=== PATIENT | female | born 1995 | race Hispanic/Latino ===

== ENCOUNTER 2019-02-28 20:21 | Day surgery (SDC) | payer OTHER ==
[2019-02-28 20:58] VITALS: BMI 26.9
[2019-02-28] MEDS ORDERED: hydrALAZINE 20 MG/ML VIAL SLOW IVP PRN (21:03)
[2019-02-28 21:16] LABS: Bacteria/HPF None Seen HPF (None Seen); Bilirubin Negative (Negative); Blood, Urine Negative (Negative); Clarity Clear (Clear); Glucose, Urine (Dipstick) Normal (Negative); Leukocyte Negative Leu/uL (Negative); Nitrite Negative (Negative); Protein, Urine (Dipstick) Negative (Neg-Trace); RBC/HPF 0-3 HPF (0-3); Squamous Epithelial 0-3 HPF (0-3); Urobilinogen Normal mg/dL (Less than 2); WBC/HPF 0-3 HPF (0-3)
[2019-02-28 21:18] LABS: Urine Culture Reflex No No
--- NOTE | 2019-02-28 21:19 | PDOC.FPROB ---
FMR OB H&P: HPI - History of Present Illness Chief Complaint: lower abd pain Indentification: 23 y/o @ 28.6 WGA History of Present Illness: Pt presents for lower abdominal pain. She describes it as a sharp 6/10 pain that comes and goes, worse with movement. Associated urinary urgency and frequency. Denies ctx, vaginal bleeding, LOF. Endorses good movement. Primary Care Physician: Dr. 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 chorio - Surgical History Sx History: section appendectomy L femur sx - Social History Social History: Denies tobacco, EtOH, drug use - Family History Family History: Denies FMR OB H&P: Medications - Current Home Medications: Medication Instructions Recorded Confirmed Type Omeprazole 1 cap PO DAILY 02/28/19 02/28/19 History Ondansetron HCl [Zofran] 4 mg PO Q12HR PRN 02/28/19 02/28/19 History Vitamin 1 tablet PO DAILY 02/28/19 02/28/19 History Allergies/Adverse Reactions: Allergies Allergy/AdvReac Type Severity Reaction Status Date / Time promethazine [From Phenergan] AdvReac Emesis Verified 02/28/19 20:51 FMR OB H&P: ROS - Review of Systems General: denies: fever/chills, weight/appetite/sleep changes Eyes: denies: vision changes, double vision ENT: denies: nasal congestion, sore throat Cardiovascular: denies: chest pain, edema Respiratory: denies: cough, shortness of breath Gastrointestinal: reports: abdominal pain. denies: nausea, diarrhea Genitourinary (Female): reports: vaginal pressure. denies: dysuria, vaginal bleeding Musculoskeletal: denies: pain, swelling Neurologic: denies: numbness, weakness Integumentary: denies: itching, rash Hematologic/Lymphatic: denies: prolonged or excessive bleeding, enlarged lymph nodes FMR OB H&P: Vital Signs - Maternal Vital signs: BP 106/62, HR 88, RR 20, Temp 98.6 - Heart Tones Baseline: 140 Variability: moderate Acceleration: present Deceleration: absent Category: category 1 Mcfall contractions every: None FMR OB H&P: Physical Exam - Physical Exam General: NAD, awake, alert and oriented HEENT: EOMI, MMM, no scleral icterus, grossly normal vision, grossly normal hearing Neck: supple, no LAD Heart: pulses present, no edema General: no respiratory distress Abdomen: soft, gravid, other (mildly tender in lower abdomen) Musculoskeletal: pulses present, FROM in all four extremities Neurological: no focal deficit Skin: good tugor, capillary refill <2 seconds Lymphatic: no unusual bruising or bleeding, no purpura Psychiatric: intact recent and remote memory, good judgement and insight FMR OB H&P: Results - Labs Lab results: Laboratory Results - last 24 hr 02/28/19 21:00 Urine Color Colorless Urine Clarity Clear Urine pH 7.0 Ur Specific Isabella 1.005 Urine Protein Negative Urine Glucose (UA) Normal Urine Ketones Negative Urine Blood Negative Urine Nitrite Negative Urine Bilirubin Negative Urine Urobilinogen Normal Ur Leukocyte Esterase Negative Urine RBC 0-3 Urine WBC 0-3 Ur Squamous Epith Cells 0-3 Urine Bacteria None Seen FMR OB H&P: A/P - Problem List (1) Round ligament pain Status: Acute Code(s): N94.9 - UNSP COND ASSOC W FEMALE GENITAL ORGANS AND MENSTRUAL CYCLE Assessment and Plan: Pt with lower abd pain that is sharp Suspect round ligament pain. UA completely normal -Continue routine f/u with Dr. Brooks -Continue PNV -Labor precautions discussed Disposition: d/c home Discussion: Date/Time: 02/28/192117 This H&P was discussed with Dr. Garner who agrees with the above documentation and plan. Signature: Navya Mehta MD, PGY-3 Addendum - Attending - Attending Attestation Date/Time: 02/28/19 [id number] I personally evaluated the patient and discussed the management with Dr. Mehta. I agree with the History, Examination, Assessment and Plan documented above. Dr. Brooks notified.
== END 2019-02-28 21:50 | disposition home or self-care (01) ==
LOC: L&D/OP 20:21
PROVIDERS: ATTEND Obstetrics & Gynecology
DX: O99.89 Other specified diseases and conditions complicating pregnancy, childbirth and the puerperium (principal); R10.30 Lower abdominal pain, unspecified; O34.211 Maternal care for low transverse scar from previous cesarean delivery; Z3A.28 28 weeks gestation of pregnancy; Z79.899 Other long term (current) drug therapy; Z88.8 Allergy status to other drugs, medicaments and biological substances
CPT/HCPCS: 81001

== ENCOUNTER 2019-05-22 05:12 | Inpatient (IN) | payer OTHER ==
[2019-05-22] MEDS ORDERED: Bicitra 30 ML UDCUP PO SCH (05:54)
[2019-05-22] MEDS ORDERED: Docusate 100 MG CAP PO PRN (05:54)
[2019-05-22] MEDS ORDERED: Ondansetron PF 4 MG/2 ML Vial IVP PRN ×3 (05:54→09:11)
[2019-05-22] MEDS ORDERED: CEFAZOLIN 2 GM in Premix Bag 1 BAG IVPB SCH (05:54)
[2019-05-22] MEDS ORDERED: Promethazine HCl 25 MG/ML VIAL IM PRN (05:54)
[2019-05-22] MEDS ORDERED: hydrALAZINE 20 MG/ML VIAL SLOW IVP PRN ×2 (05:54→09:11)
[2019-05-22 06:06] VITALS: BMI 29.5
[2019-05-22 06:11] LABS: Hemoglobin 10.3 g/dL (12.0-16.0); Mean Corpuscular HGB CONC 33.8 g/dL (32.0-36.0); Mean Corpuscular Hemoglobin 25.2 pg (27.0-31.0); Mean Corpuscular Volume 74.4 fL (78.0-98.0); Platelet Count 249 thou/uL (130-400); RBC Distribution Width 16.5 % (11.5-14.5); Red Blood Cell (RBC) Count 4.09 mill/uL (4.20-5.40)
[2019-05-22] MEDS: Lactated Ringer's 1,000 ML IV SCH ×4 (06:15→17:24)
[2019-05-22 06:57] LABS: Syphilis Antibody Nonreactive (Nonreactive); Syphilis Antibody Index 0.04 S/CO (<1.00 Non-Reactive)
[2019-05-22 07:00] LABS: HBSAg Index 0.28 S/CO (0-0.99); Hep B Surf Ag Non-Reactive S/CO (NonReactive)
[2019-05-22] MEDS ORDERED: MORPHINE 5 MG/10 ML PF VIAL ONE (07:22)
[2019-05-22] MEDS ORDERED: Oxytocin 10 UNITS/ML VIAL ONE (07:22)
[2019-05-22] MEDS ORDERED: Naloxone HCl 0.4 mg/ml Vial IV PRN (08:13)
[2019-05-22] MEDS ORDERED: Ondansetron HCl/PF 4 MG/2 ML Vial IVP PRN (08:13)
[2019-05-22] MEDS ORDERED: diphenhydrAMINE 50 MG/ML VIAL IVP PRN (08:13)
[2019-05-22] MEDS ORDERED: Meperidine HCl/PF 25 MG/ML VIAL SLOW IVP PRN (08:13)
[2019-05-22] MEDS ORDERED: L&D-Morphine 4 MG/ML VIAL SLOW IVP PRN (08:13)
[2019-05-22] MEDS ORDERED: Naloxone HCl 0.4 mg/ml Vial IVP PRN ×2 (08:13)
[2019-05-22] MEDS ORDERED: HYDROmorphone 2 MG/ML VIAL SLOW IVP PRN (08:13)
[2019-05-22] MEDS ORDERED: Communication Order-Pharmacy FS SCH (08:15)
[2019-05-22] MEDS ORDERED: Fentanyl 100 MCG/2 ML VIAL ONE (08:32)
[2019-05-22] MEDS ORDERED: diphenhydrAMINE 25 MG CAP PO PRN (09:11)
[2019-05-22] MEDS ORDERED: Bisacodyl 10 MG SUPP PR PRN (09:11)
[2019-05-22] MEDS ORDERED: Acetaminophen 325 MG TAB PO PRN (09:11)
[2019-05-22] MEDS ORDERED: Zolpidem Tartrate 5 MG TAB PO PRN (09:11)
[2019-05-22] MEDS ORDERED: Adacel (T-DAP) 0.5 ML SYRINGE IM ONE (09:11)
[2019-05-22] MEDS ORDERED: Misoprostol 200 MCG TAB PR PRN (09:11)
[2019-05-22] MEDS ORDERED: NS / Oxytocin 40 units/1000ml 1,000 ML IV SCH (09:15)
[2019-05-22] MEDS ORDERED: Morphine 4 MG/ML VIAL ONE (10:45)
[2019-05-22] MEDS ORDERED: Metoclopramide HCl 10 MG/2 ML VIAL ONE (10:46)
[2019-05-22] MEDS ORDERED: PHENYLEPHRINE-NS 100 MCG/ML 10 ML SYRINGE ONE (10:46)
[2019-05-22] MEDS ORDERED: Ketorolac Tromethamine 30 MG/ML VIAL ONE (10:46)
[2019-05-22] MEDS ORDERED: Ondansetron PF 4 MG/2 ML Vial ONE (10:46)
[2019-05-22] MEDS ORDERED: Meperidine HCl/PF 25 MG/ML VIAL ONE (11:12)
[2019-05-22] MEDS: Ketorolac Tromethamine 30 MG/ML VIAL IVP PRN ×2 (13:55→20:07)
[2019-05-22] MEDS: Ferrous Sulfate 325 MG TAB PO SCH (17:23)
[2019-05-22] MEDS: Simethicone Chewable 80 MG TAB PO PRN (20:09)
[2019-05-22] MEDS ORDERED: Meperidine HCl/PF 25 MG/ML VIAL IM PRN (20:15)
[2019-05-22] MEDS: HYDROcodone/Acetaminophen 5/325 mg Tablet PO PRN (21:36)
[2019-05-22] MEDS: Docusate Calcium (SURFAK) 240 MG CAP PO SCH (21:38)
--- NOTE | 2019-05-22 21:58 | OP ---
DATE OF PROCEDURE: 05/22/2019 PRIMARY SURGEON: Dr. Asad Brooks RESIDENT SURGEON: Dr. Angelina Goel. PROCEDURE PERFORMED: Repeat low transverse section. PREOPERATIVE DIAGNOSES: 1. Term intrauterine . 2. History of previous section. 3. Gestational diabetes. 4. History of spontaneous x5. POSTOPERATIVE DIAGNOSES: 1. Term intrauterine , delivered. 2. Repeat low transverse . 3. Gestational diabetes. 4. History of spontaneous x5. INDICATIONS FOR PROCEDURE: This is a 23-year-old, G7, P1-0-5-1 at 39 weeks' gestation, who presents for scheduled repeat low-transverse section. PROCEDURE IN DETAIL: After risks, benefits, and alternatives were discussed with patient, she gave informed consent. The patient was taken back to the operating room, where spinal anesthesia was initiated. She was placed in supine position with left lateral tilt. She was prepped and draped in the usual sterile fashion. A Pfannenstiel incision was made 2 cm above the pubic symphysis. The old scar was removed. The incision was then carried down to the level of the fascia , which was sharply nicked. The fascia was extended bilaterally with Markham scissors. Lucy clamps were used to clamp the superior and inferior edges of the cut fascia. The underlying rectus muscles were then sharply and bluntly dissected free. The peritoneum was entered in the midline, paying close attention to the bladder. The rectus muscles and the peritoneum were then stretched manually. Bladder blade was placed. The bladder flap was created using [place]'s and Metzenbaum scissors. A transverse incision was then made in the midline of the uterus and the incision was extended manually in the cephalocaudal direction. Clear fluid was seen. The infant was noted to be vertex and easily delivered by fundal pressure. The cord was clamped and cut and grossly normal female infant was handed to the nurse. Cord blood was collected. Placenta was delivered manually. The uterus was then externalized and curetted with a dry lap. The hysterotomy was closed using a running locking #1 chromic suture. The bladder flap was closed using 2- [address] in a running nonlocking fashion. After this, hemostasis was achieved. There was noted to be hematoma on the right lateral portion of the hysterotomy and two [place] stitches were used to contain this hematoma. The bleeding did extend posteriorly on the uterus after examination. A reverse [place] was used to achieve hemostasis. No further bleeding noted on the posterior aspect of the uterus, which was examined very carefully. The uterus and the abdomen were then irrigated and suctioned free of clots. Seprafilm was placed. The uterus was internalized and hysterotomy was again examined. Hysterotomy was noted to be hemostatic. The peritoneum was then closed using 2-[address] in a running nonlocking fashion. The rectus muscles were brought together using 2-0 Vicryl using [id number] stitches. The fascia was then brought together using 0 Vicryl in a running nonlocking fashion. Subcutaneous tissue was irrigated and suctioned free of clots. Bleeders were cauterized. The subcutaneous tissue was then brought together using 2-0 plain gut in a simple interrupted fashion. Skin was approximated using 4-0 monofilament. Dermabond was applied. Pressure dressings were then placed. All counts were correct. QBL: 390 mL. COMPLICATIONS: None. FINDINGS: Grossly normal female with Apgars of 8 and 9 at 1 and 5 minutes respectively. weight of 3.599 kg. Grossly normal placenta with 3-vessel cord noted and discarded. DRAINS: [place] to gravity, draining clear urine. Job ID: [id number] [facility]
[2019-05-22] MEDS ORDERED: Sodium Chloride 0.9% 0 ML ONE (23:00)
[2019-05-23] MEDS: Lactated Ringer's 1,000 ML IV SCH ×3 (00:30→16:40)
[2019-05-23] MEDS: Ketorolac Tromethamine 30 MG/ML VIAL IVP PRN (02:48)
[2019-05-23 06:03] LABS: Hemoglobin 9.8 g/dL (12.0-16.0); Mean Corpuscular HGB CONC 32.6 g/dL (32.0-36.0); Mean Corpuscular Hemoglobin 25.1 pg (27.0-31.0); Mean Platelet Volume 9.2 fL (7.4-10.4); Platelet Count 229 thou/uL (130-400); RBC Distribution Width 16.8 % (11.5-14.5); White Blood Cell (WBC) Count 13.7 thou/uL (4.8-10.8)
[2019-05-23] MEDS: HYDROcodone/Acetaminophen 5/325 mg Tablet PO PRN ×4 (06:47→21:27)
[2019-05-23] MEDS: Simethicone Chewable 80 MG TAB PO PRN ×2 (06:48→21:27)
[2019-05-23] MEDS: Prenatal Vitamin 1 TAB PO SCH (09:16)
[2019-05-23] MEDS: Ferrous Sulfate 325 MG TAB PO SCH ×2 (09:16→18:43)
[2019-05-23] MEDS: Docusate Calcium (SURFAK) 240 MG CAP PO SCH ×2 (09:16→21:26)
[2019-05-23] MEDS: Ibuprofen 800 MG TAB PO SCH ×2 (12:51→21:26)
[2019-05-23] MEDS: Lanolin Ointment 7 GM TUBE TOP PRN (15:28)
[2019-05-24] MEDS: Lactated Ringer's 1,000 ML IV SCH ×3 (01:39→17:05)
[2019-05-24] MEDS: Ibuprofen 800 MG TAB PO SCH ×3 (03:38→20:00)
[2019-05-24] MEDS: HYDROcodone/Acetaminophen 5/325 mg Tablet PO PRN ×5 (03:38→23:03)
[2019-05-24] MEDS: Lanolin Ointment 7 GM TUBE TOP PRN (07:57)
[2019-05-24] MEDS: Ferrous Sulfate 325 MG TAB PO SCH ×2 (07:58→17:01)
[2019-05-24] MEDS: Prenatal Vitamin 1 TAB PO SCH (07:58)
[2019-05-24] MEDS: Docusate Calcium (SURFAK) 240 MG CAP PO SCH ×2 (07:58→23:04)
[2019-05-24] MEDS: Hydrocortisone 1% Cream 30 GM TUBE TOP SCH ×3 (12:01→23:04)
[2019-05-24] MEDS: Simethicone Chewable 80 MG TAB PO PRN (18:13)
[2019-05-25] MEDS: Lactated Ringer's 1,000 ML IV SCH ×2 (01:26→09:38)
[2019-05-25] MEDS: HYDROcodone/Acetaminophen 5/325 mg Tablet PO PRN ×2 (03:21→09:37)
[2019-05-25] MEDS: Ibuprofen 800 MG TAB PO SCH (05:38)
[2019-05-25 09:02] VITALS: BP 110/53; TEMP 98.6
[2019-05-25] MEDS: Prenatal Vitamin 1 TAB PO SCH (09:35)
[2019-05-25] MEDS: Simethicone Chewable 80 MG TAB PO PRN (09:36)
[2019-05-25] MEDS: Ferrous Sulfate 325 MG TAB PO SCH (09:36)
[2019-05-25] MEDS: Docusate Calcium (SURFAK) 240 MG CAP PO SCH (09:36)
[2019-05-25] MEDS: Hydrocortisone 1% Cream 30 GM TUBE TOP SCH (09:36)
== END 2019-05-25 13:32 | disposition home or self-care (01) | DRG 787 ==
LOC: L&D-LIB 05:12 → L&D 07:56 → 3SW 12:18
PROVIDERS: ADMIT Obstetrics & Gynecology; ATTEND Obstetrics & Gynecology
PROC: 10D00Z1 Extraction of Products of Conception, Low, Open Approach (ICD-10-PCS; principal; 2019-05-22)
DX: O34.211 Maternal care for low transverse scar from previous cesarean delivery (principal); O99.354 Diseases of the nervous system complicating childbirth; D62 Acute posthemorrhagic anemia; Z37.0 Single live birth; Z3A.40 40 weeks gestation of pregnancy; O99.344 Other mental disorders complicating childbirth; F32.9 Major depressive disorder, single episode, unspecified; F41.9 Anxiety disorder, unspecified; K21.9 Gastro-esophageal reflux disease without esophagitis; O99.62 Diseases of the digestive system complicating childbirth; G43.909 Migraine, unspecified, not intractable, without status migrainosus; O90.81 Anemia of the puerperium; O24.429 Gestational diabetes mellitus in childbirth, unspecified control; Z79.899 Other long term (current) drug therapy
CPT/HCPCS: 36415; 51702; 85027; 86780; 86850; 86900; 86901; 87340; 99285; J0690; J1885; J2175; J2270; J2274; J2405; J2590; J2765; J3010